=== PATIENT | male | born 1955 | race Caucasian/White ===

== ENCOUNTER 2019-11-23 12:38 | Observation (INO) ==
[2019-11-23] MEDS ORDERED: *HR* HYDROcodone/Acet 5/325 mg TABLET PO ONE (13:20)
[2019-11-23 13:53] LABS: Basophils % 0.6 %; Eosinophils % 0.6 %; Hematocrit 42.4 % (37.5-50.1); Hemoglobin 15.7 g/dL (12.9-16.9); Immature Granulocytes % 0.6 % (0-4); Lymphocytes % 14.5 %; Mean Corpuscular Hemoglobin 34.8 pg (28.0-33.3); Mean Platelet Volume 10.3 fL (9.4-12.4); Monocytes # 0.8 K/mcL (0.0-1.3); Monocytes % 11.9 %; Neutrophils # 4.9 K/mcL (1.6-8.9); Platelet Count 240 K/mcL (140-400); Red Blood Count 4.51 M/mcL (4.19-5.50); Red Cell Distribution Width 12.4 % (11.5-14.5); Segmented Neutrophils % 71.8 %; White Blood Count 6.8 K/mcL (4.3-11.1)
[2019-11-23 14:13] LABS: BUN/Creatinine Ratio 13 (6-26); Blood Urea Nitrogen 11 mg/dL (8-23); Calcium 9.4 mg/dL (8.6-10.3); Carbon Dioxide 27 mEq/L (23-29); Chloride 90 mEq/L (98-107); Creatine Kinase 17 Units/L (30-223); Glucose 114 mg/dL (70-105); Osmolality,Calculated 268 (280-300); Potassium 3.6 mEq/L (3.5-5.1); Sodium 129 mEq/L (136-145); eGFR For African Americans > 60 (> 60); eGFR For Non-African Americans > 60 (> 60)
[2019-11-23 15:25] LABS: INR 1.1; Prothrombin Time 12.1 Seconds (9.4-12.1)
[2019-11-23 15:28] LABS: Activated Partial Thrombo Time 22.1 Seconds (26.0-36.0)
[2019-11-23] MEDS ORDERED: Naloxone 0.4 MG/ML INJ IVP PRN (15:47)
[2019-11-23] MEDS ORDERED: Acetaminophen 325 MG TABLET PO PRN (15:47)
[2019-11-23] MEDS ORDERED: *HR* HYDROcodone/Acet 5/325 mg TABLET PO PRN (15:47)
[2019-11-23] MEDS ORDERED: 0.9 % Sodium Chloride 1,000 ML IVC SCH (16:00)
[2019-11-23] MEDS: Nicotine 21 MG PATCH.TD24 TD SCH (17:58)
[2019-11-23] MEDS: Ibuprofen 600 MG TABLET PO PRN (22:53)
[2019-11-24] MEDS ORDERED: *HR* Enoxaparin 40 MG/0.4 ML SYRINGE SQ SCH (06:00)
[2019-11-24 06:45] LABS: Basophils % 0.9 %; Eosinophils # 0.2 K/mcL (0.0-0.6); Eosinophils % 3.6 %; Hematocrit 36.2 % (37.5-50.1); Hemoglobin 13.3 g/dL (12.9-16.9); Immature Granulocytes % 0.5 % (0-4); Lymphocytes # 1.5 K/mcL (0.6-4.6); Lymphocytes % 33.1 %; Mean Corpuscular HGB Conc 36.7 g/dL (31.6-35.5); Mean Corpuscular Hemoglobin 34.9 pg (28.0-33.3); Mean Platelet Volume 10.3 fL (9.4-12.4); Monocytes # 0.6 K/mcL (0.0-1.3); Monocytes % 12.5 %; Neutrophils # 2.2 K/mcL (1.6-8.9); Platelet Count 193 K/mcL (140-400); Red Blood Count 3.81 M/mcL (4.19-5.50); Red Cell Distribution Width 11.9 % (11.5-14.5); Segmented Neutrophils % 49.4 %; White Blood Count 4.4 K/mcL (4.3-11.1)
[2019-11-24] MEDS ORDERED: *HR* Enoxaparin 80 MG/0.8 ML SYRINGE SQ STA (07:11)
[2019-11-24 07:23] LABS: BUN/Creatinine Ratio 19 (6-26); Blood Urea Nitrogen 17 mg/dL (8-23); Calcium 8.4 mg/dL (8.6-10.3); Carbon Dioxide 27 mEq/L (23-29); Chloride 96 mEq/L (98-107); Glucose 106 mg/dL (70-105); Osmolality,Calculated 274 (280-300); Potassium 3.3 mEq/L (3.5-5.1); Sodium 131 mEq/L (136-145); eGFR For African Americans > 60 (> 60); eGFR For Non-African Americans > 60 (> 60)
[2019-11-24] MEDS: *HR* HYDROcodone/Acet 7.5/325 mg TABLET PO PRN (08:29)
[2019-11-24] MEDS: Nicotine 21 MG PATCH.TD24 TD SCH (08:29)
[2019-11-24] MEDS ORDERED: *HR* LORazepam 2 MG/ML VIAL IVP ONE (20:21)
[2019-11-25] MEDS: Nicotine 21 MG PATCH.TD24 TD SCH (07:57)
[2019-11-25] MEDS: *HR* HYDROcodone/Acet 7.5/325 mg TABLET PO PRN (08:00)
[2019-11-25 08:27] LABS: Eosinophils # 0.1 K/mcL (0.0-0.6); Eosinophils % 3.5 %; Hematocrit 35.3 % (37.5-50.1); Hemoglobin 12.7 g/dL (12.9-16.9); Immature Granulocytes % 0.5 % (0-4); Lymphocytes # 1.2 K/mcL (0.6-4.6); Lymphocytes % 29.1 %; Mean Corpuscular Hemoglobin 34.8 pg (28.0-33.3); Mean Corpuscular Volume 96.7 fL (83.0-100.0); Mean Platelet Volume 10.2 fL (9.4-12.4); Monocytes # 0.5 K/mcL (0.0-1.3); Monocytes % 11.6 %; Neutrophils # 2.2 K/mcL (1.6-8.9); Platelet Count 210 K/mcL (140-400); Red Blood Count 3.65 M/mcL (4.19-5.50); Segmented Neutrophils % 54.3 %; White Blood Count 4.1 K/mcL (4.3-11.1)
[2019-11-25 09:00] LABS: BUN/Creatinine Ratio 23 (6-26); Blood Urea Nitrogen 15 mg/dL (8-23); Calcium 8.4 mg/dL (8.6-10.3); Carbon Dioxide 27 mEq/L (23-29); Chloride 98 mEq/L (98-107); Glucose 104 mg/dL (70-105); Magnesium 2.1 mg/dL (1.6-2.6); Osmolality,Calculated 273 (280-300); Potassium 3.7 mEq/L (3.5-5.1); Sodium 131 mEq/L (136-145); eGFR For African Americans > 60 (> 60); eGFR For Non-African Americans > 60 (> 60)
[2019-11-25] MEDS: *HR* OxyCODONE/APAP 5/325 TABLET PO PRN (20:28)
[2019-11-26] MEDS: *HR* OxyCODONE/APAP 5/325 TABLET PO PRN ×2 (06:48→11:24)
[2019-11-26 08:10] LABS: Eosinophils # 0.2 K/mcL (0.0-0.6); Eosinophils % 4.3 %; Hematocrit 38.7 % (37.5-50.1); Hemoglobin 13.7 g/dL (12.9-16.9); Immature Granulocytes % 0.2 % (0-4); Lymphocytes # 1.4 K/mcL (0.6-4.6); Lymphocytes % 32.9 %; Mean Corpuscular HGB Conc 35.4 g/dL (31.6-35.5); Mean Corpuscular Hemoglobin 34.9 pg (28.0-33.3); Mean Corpuscular Volume 98.7 fL (83.0-100.0); Mean Platelet Volume 10.2 fL (9.4-12.4); Monocytes # 0.5 K/mcL (0.0-1.3); Monocytes % 11.5 %; Neutrophils # 2.1 K/mcL (1.6-8.9); Platelet Count 241 K/mcL (140-400); Red Blood Count 3.92 M/mcL (4.19-5.50); Red Cell Distribution Width 12.3 % (11.5-14.5); Segmented Neutrophils % 50.1 %; White Blood Count 4.2 K/mcL (4.3-11.1)
[2019-11-26 08:29] LABS: BUN/Creatinine Ratio 25 (6-26); Blood Urea Nitrogen 16 mg/dL (8-23); Calcium 8.9 mg/dL (8.6-10.3); Carbon Dioxide 26 mEq/L (23-29); Chloride 97 mEq/L (98-107); Glucose 127 mg/dL (70-105); Magnesium 2.2 mg/dL (1.6-2.6); Osmolality,Calculated 275 (280-300); Potassium 3.7 mEq/L (3.5-5.1); Sodium 131 mEq/L (136-145); eGFR For African Americans > 60 (> 60); eGFR For Non-African Americans > 60 (> 60)
[2019-11-26] MEDS: Nicotine 21 MG PATCH.TD24 TD SCH (10:54)
[2019-11-26] MEDS: Ibuprofen 600 MG TABLET PO PRN (20:14)
[2019-11-26] MEDS: Mirtazapine 15 MG TABLET PO SCH (20:15)
[2019-11-27] MEDS: *HR* OxyCODONE/APAP 5/325 TABLET PO PRN ×3 (08:06→21:45)
[2019-11-27] MEDS: Nicotine 21 MG PATCH.TD24 TD SCH (08:07)
[2019-11-27] MEDS: Ibuprofen 600 MG TABLET PO PRN (17:23)
[2019-11-27] MEDS: Mirtazapine 15 MG TABLET PO SCH (21:43)
[2019-11-28] MEDS: *HR* OxyCODONE/APAP 5/325 TABLET PO PRN ×3 (06:11→18:01)
[2019-11-28] MEDS: Ibuprofen 600 MG TABLET PO PRN ×3 (08:07→20:00)
[2019-11-28] MEDS: Nicotine 21 MG PATCH.TD24 TD SCH (08:08)
[2019-11-28] MEDS: Mirtazapine 15 MG TABLET PO SCH (20:00)
[2019-11-29] MEDS: *HR* OxyCODONE/APAP 5/325 TABLET PO PRN ×4 (00:13→18:30)
[2019-11-29] MEDS: Nicotine 21 MG PATCH.TD24 TD SCH (09:20)
[2019-11-29] MEDS ORDERED: MOM Conc 10 ML UD.LIQ PO ONE (11:27)
[2019-11-29 13:45] VITALS: BP 113/76
[2019-11-29] MEDS: Ibuprofen 600 MG TABLET PO PRN (15:32)
== END 2019-11-29 18:36 ==
LOC: EMEROOPIK 12:38 → INPPIK 12:38
PROVIDERS: ADMIT Family Medicine; ATTEND Family Medicine